=== PATIENT | male | born 1965 | race Caucasian/White ===

== ENCOUNTER 2019-03-01 09:08 | Day surgery (SDC) | payer MEDICAID ==
[~2019-03-01] VITALS: Ht 165.1 cm; Wt 93.0 kg
[2019-03-01] MEDS ORDERED: CYCLOPENTOLATE HCL 1% OPHTH DROPS 2ML LEFTEYE SCH (09:30)
[2019-03-01] MEDS ORDERED: TROPICAMIDE 1% OPHTH DROPS 15ML LEFTEYE SCH (09:30)
[2019-03-01] MEDS ORDERED: PHENYLEPHRINE HCL 10% OPHTH DROPS 5ML LEFTEYE SCH (09:30)
[2019-03-01] MEDS ORDERED: SODIUM CHLORIDE 0.9% 500 ML IV NR (10:00)
[2019-03-01 10:02] LABS: BASOPHILS % 1.1 % (0.0-2.0); HEMATOCRIT. 35.6 % (42.0-52.0); HEMOGLOBIN. 12.3 g/dL (14.0-18.0); MEAN CORPUSCULAR HEMOGLOBIN 30.8 pg (28.0-32.0); MEAN CORPUSCULAR VOLUME 88.9 fL (80.0-94.0); MEAN PLATELET VOLUME 8.8 fl (7.4-10.4); MONOCYTES % 7.3 % (2.0-8.0); NEUTROPHILS % 65.6 % (40.0-76.0); PLATELET 233 x1000/uL (130-400); RED CELL DISTRIBUTION WIDTH 14.8 % (11.6-14.6)
[2019-03-01] MEDS ORDERED: HYALURONATE SODIUM 14 MG/ML 0.85ML SYRINGE IO ONE ×2 (10:26→12:31)
[2019-03-01] MEDS ORDERED: TETRACAINE 0.5% OPHTH DROPS 4ML ONE (10:30)
[2019-03-01] MEDS ORDERED: CIPROFLOXACIN 0.3% OPHTH SOLN 2.5ML ONE (10:30)
[2019-03-01] MEDS ORDERED: PREDNISOLONE ACETATE 1% OPHTH DROPS 1ML ONE (10:30)
[2019-03-01] MEDS ORDERED: BALANCED SALT IRRIG SOLN COMB1 500ML OP ONE (10:30)
[2019-03-01] MEDS ORDERED: ACETYLCHOLINE CHLORIDE INTRAOCULAR SOLUTION 1:100 ELECTROLYTE DILUENT IO ONE (10:30)
[2019-03-01] MEDS ORDERED: LIDOCAINE HCL/PF 2% 20 MG/ML 10ML VIAL ONE (10:30)
[2019-03-01] MEDS ORDERED: NEO/POLYMYX B SULF/DEXAMETH OPHTH OINT 3.5GM ONE (10:30)
[2019-03-01] MEDS ORDERED: MIDAZOLAM HCL 2 MG/2 ML VIAL ONE (10:43)
[2019-03-01] MEDS ORDERED: ATOR-2 PO (11:07)
[2019-03-01] MEDS ORDERED: LOSA50TA20 PO (11:07)
[2019-03-01] MEDS ORDERED: NVLG73 SUBCUT ×2 (11:07)
[2019-03-01] MEDS ORDERED: NIFE90TA43 PO (11:07)
[2019-03-01] MEDS ORDERED: GABA-529 PO (11:07)
== END 2019-03-01 13:00 | disposition home or self-care (01) ==
LOC: EDBD 09:08 → OR 09:08
PROVIDERS: ATTEND Ophthalmology
DX: E11.36 Type 2 diabetes mellitus with diabetic cataract (principal); H25.89 Other age-related cataract; I12.0 Hypertensive chronic kidney disease with stage 5 chronic kidney disease or end stage renal disease; E11.22 Type 2 diabetes mellitus with diabetic chronic kidney disease; N18.6 End stage renal disease; Z99.2 Dependence on renal dialysis; Z79.4 Long term (current) use of insulin; E66.01 Morbid (severe) obesity due to excess calories
CPT/HCPCS: 36415; 66984; 67005; 80048; 82962; 85025; J2250; J3490; V2632

== ENCOUNTER 2019-08-30 06:28 | Day surgery (SDC) | payer MEDICAID ==
[~2019-08-30] VITALS: Ht 165.1 cm; Wt 90.0 kg
[~2019-08-30 06:28] MED LIST: ATOR-2 PO; GABA-529 PO; LOSA50TA41 PO; NIFE90TA43 PO; NVLG73 SUBCUT
[2019-08-30] MEDS ORDERED: BALANCED SALT IRRIG SOLN COMB1 500ML OP ONE (06:30)
[2019-08-30] MEDS ORDERED: HYALURONATE SODIUM 14 MG/ML 0.85ML SYRINGE IO ONE (07:22)
[2019-08-30 08:30] LABS: BASOPHILS % 1.4 % (0.0-2.0); EOSINOPHILS % 2.1 % (0.0-5.0); HEMATOCRIT. 35.2 % (42.0-52.0); HEMOGLOBIN. 12.1 g/dL (14.0-18.0); LYMPHOCYTES % 20.6 % (20.0-50.0); MEAN CORPUSCULAR VOLUME 87.3 fL (80.0-94.0); MONOCYTES % 7.7 % (2.0-8.0); NEUTROPHILS % 68.2 % (40.0-76.0); RED BLOOD CELL COUNT 4.03 mill/uL (4.7-6.1); RED CELL DISTRIBUTION WIDTH 14.6 % (11.6-14.6)
[2019-08-30] MEDS ORDERED: INSULIN REGULAR (HUMULIN R) 300UNITS/3ML ONE (08:39)
[2019-08-30] MEDS ORDERED: CYCLOPENTOLATE HCL 1% OPHTH DROPS 2ML RIGHTEYE NR (08:45)
[2019-08-30] MEDS ORDERED: TROPICAMIDE 1% OPHTH DROPS 15ML RIGHTEYE NR (08:45)
[2019-08-30] MEDS ORDERED: PHENYLEPHRINE HCL 10% OPHTH DROPS 5ML RIGHTEYE NR (08:45)
[2019-08-30] MEDS ORDERED: TETRACAINE 0.5% OPHTH DROPS 4ML ONE (09:00)
[2019-08-30] MEDS ORDERED: NEO/POLYMYX B SULF/DEXAMETH OPHTH OINT 3.5GM ONE (09:00)
[2019-08-30] MEDS ORDERED: PREDNISOLONE ACETATE 1% OPHTH DROPS 5ML ONE (09:00)
[2019-08-30] MEDS ORDERED: CIPROFLOXACIN 0.3% OPHTH SOLN 2.5ML ONE (09:00)
[2019-08-30] MEDS ORDERED: LIDOCAINE HCL/PF 2% 20 MG/ML 10ML VIAL ONE (09:00)
[2019-08-30 09:07] LABS: PLATELET 203 x1000/uL (130-400); PLATELET ESTIMATE NORMAL
[2019-08-30] MEDS ORDERED: MIDAZOLAM HCL 2 MG/2 ML VIAL ONE (09:09)
[2019-08-30] MEDS ORDERED: FENTANYL CITRATE/PF 50MCG/ML 2ML VIAL ONE (09:09)
[2019-08-30] MEDS ORDERED: LABETALOL HCL 5MG/ML VIAL 20ML IV ONE (09:15)
[2019-08-30] MEDS ORDERED: HYDRALAZINE 20MG/ML VIAL ONE (09:16)
[2019-08-30] MEDS ORDERED: SODIUM CHLORIDE 0.9% 500 ML IV ONE (09:45)
== END 2019-08-30 11:10 | disposition home or self-care (01) ==
LOC: OR 06:28
PROVIDERS: ATTEND Ophthalmology
DX: E11.36 Type 2 diabetes mellitus with diabetic cataract (principal); H25.011 Cortical age-related cataract, right eye; I12.0 Hypertensive chronic kidney disease with stage 5 chronic kidney disease or end stage renal disease; E11.22 Type 2 diabetes mellitus with diabetic chronic kidney disease; N18.6 End stage renal disease; E78.00 Pure hypercholesterolemia, unspecified; E66.3 Overweight; Z99.2 Dependence on renal dialysis; Z98.890 Other specified postprocedural states; Z79.899 Other long term (current) drug therapy; Z79.4 Long term (current) use of insulin; Z98.42 Cataract extraction status, left eye; Z68.33 Body mass index [BMI] 33.0-33.9, adult
CPT/HCPCS: 36415; 66984; 80048; 82962; 85025; J0360; J1815; J2250; J3010; J3490; J7040; V2632